=== PATIENT | male | born 1945 | race Caucasian/White ===

== ENCOUNTER 2021-06-14 02:35 | Inpatient (IN) ==
[2021-06-14 03:59] LABS: Basophils # 0.1 K/mcL (0.0-0.2); Basophils % 0.5 %; Eosinophils # 0.4 K/mcL (0.0-0.6); Eosinophils % 2.9 %; Hematocrit 38.4 % (37.5-50.1); Hemoglobin 12.3 g/dL (12.9-16.9); Immature Granulocytes % 0.3 % (0-4); Lymphocytes # 1.3 K/mcL (0.6-4.6); Lymphocytes % 9.8 %; Mean Corpuscular Hemoglobin 30.2 pg (28.0-33.3); Mean Corpuscular Volume 94.3 fL (83.0-100.0); Monocytes # 0.6 K/mcL (0.0-1.3); Monocytes % 4.6 %; Neutrophils # 10.6 K/mcL (1.6-8.9); Platelet Count 258 K/mcL (140-400); Red Blood Count 4.07 M/mcL (4.19-5.50); Red Cell Distribution Width 15.5 % (11.5-14.5); Segmented Neutrophils % 81.9 %; White Blood Count 12.9 K/mcL (4.3-11.1)
[2021-06-14 04:07] LABS: BUN/Creatinine Ratio 22 (6-26); Blood Urea Nitrogen 18 mg/dL (8-23); Calcium 8.3 mg/dL (8.6-10.3); Carbon Dioxide 28 mEq/L (23-29); Chloride 111 mEq/L (98-107); Glucose 82 mg/dL (70-105); Osmolality,Calculated 291 (280-300); Potassium 3.6 mEq/L (3.5-5.1); Sodium 140 mEq/L (136-145); Troponin I < 0.03 ng/mL (< 0.04); eGFR For African Americans > 60 (> 60); eGFR For Non-African Americans > 60 (> 60)
[2021-06-14] MEDS ORDERED: cefTRIAXone 2,000 MG in 0.9 % Sodium Chloride 20 ML IVP ONE (04:35)
[2021-06-14] MEDS ORDERED: Azithromycin 500 MG in 0.9 % Sodium Chloride 250 ML IVPB ONE (04:35)
[2021-06-14 04:52] LABS: Influenza A PCR Negative (Negative); Influenza B PCR Negative (Negative); Resp. Syncytial Virus PCR Negative (Negative)
[2021-06-14 04:58] LABS: SARS-CoV-2 by PCR (In House) Negative (Negative)
[2021-06-14] MEDS ORDERED: 0.9 % Sodium Chloride 1,000 ML IV ONE (05:46)
[2021-06-14] MEDS ORDERED: Naloxone 0.4 MG/ML INJ IVP PRN (06:04)
[2021-06-14] MEDS ORDERED: Melatonin 3 MG TABLET PO PRN (06:04)
[2021-06-14] MEDS ORDERED: Sennosides/Docusate Sodium TABLET PO PRN (06:28)
[2021-06-14] MEDS ORDERED: Carbidopa/Levodopa ER 50/200 TABLET PO SCH (09:00)
[2021-06-14 09:52] LABS: VBG HCO3 22 mEq/L (21-27); VBG PCO2 30 mmHg (41-51); VBG PH 7.47 pH Units (7.32-7.42); VBG PO2 172 mmHg (25-50)
[2021-06-14] MEDS: Gabapentin 300 MG CAPSULE PO SCH ×3 (11:07→20:56)
[2021-06-14] MEDS: ARIPiprazole 2 MG TABLET PO SCH (11:07)
[2021-06-14] MEDS: Artificial Tears SOLN 15 ML BOTTLE BOTH EYES SCH ×2 (11:07→20:57)
[2021-06-14] MEDS: Latanoprost 2.5 ML BOTTLE BOTH EYES SCH (20:57)
[2021-06-15] MEDS: cefTRIAXone 1,000 MG in 0.9 % Sodium Chloride 10 ML IVP SCH ×2 (03:35→09:08)
[2021-06-15] MEDS: Azithromycin 500 MG in 0.9 % Sodium Chloride 250 ML IVPB SCH (05:11)
[2021-06-15 06:06] LABS: Basophils # 0.1 K/mcL (0.0-0.2); Basophils % 0.6 %; Eosinophils # 0.3 K/mcL (0.0-0.6); Eosinophils % 2.2 %; Hematocrit 36.4 % (37.5-50.1); Hemoglobin 11.5 g/dL (12.9-16.9); Immature Granulocytes % 0.4 % (0-4); Lymphocytes # 1.3 K/mcL (0.6-4.6); Lymphocytes % 10.5 %; Mean Corpuscular HGB Conc 31.6 g/dL (31.6-35.5); Mean Corpuscular Hemoglobin 29.8 pg (28.0-33.3); Mean Corpuscular Volume 94.3 fL (83.0-100.0); Mean Platelet Volume 11.3 fL (9.4-12.4); Monocytes # 0.8 K/mcL (0.0-1.3); Monocytes % 6.7 %; Neutrophils # 9.9 K/mcL (1.6-8.9); Platelet Count 216 K/mcL (140-400); Red Blood Count 3.86 M/mcL (4.19-5.50); Red Cell Distribution Width 15.5 % (11.5-14.5); Segmented Neutrophils % 79.6 %; White Blood Count 12.5 K/mcL (4.3-11.1)
[2021-06-15 06:24] LABS: BUN/Creatinine Ratio 18 (6-26); Blood Urea Nitrogen 15 mg/dL (8-23); Calcium 7.8 mg/dL (8.6-10.3); Carbon Dioxide 25 mEq/L (23-29); Chloride 112 mEq/L (98-107); Glucose 75 mg/dL (70-105); Osmolality,Calculated 294 (280-300); Potassium 3.9 mEq/L (3.5-5.1); Sodium 142 mEq/L (136-145); eGFR For African Americans > 60 (> 60); eGFR For Non-African Americans > 60 (> 60)
[2021-06-15] MEDS ORDERED: Mag Hydrox/Al Hydrox/Simeth 30 ML UDC PO PRN (07:32)
[2021-06-15] MEDS ORDERED: MOM Conc 10 ML UD.LIQ PO PRN (08:04)
[2021-06-15] MEDS ORDERED: ARIPiprazole 2 MG TABLET PO SCH (09:00)
[2021-06-15] MEDS ORDERED: PEG BOTH EYES SCH (09:00)
[2021-06-15] MEDS ORDERED: PROPYLENE GLYCOL BOTH EYES SCH (09:00)
[2021-06-15] MEDS ORDERED: [UNRECOGNIZED DRUG - OTHER] BOTH EYES SCH (09:00)
[2021-06-15] MEDS: ARIPiprazole 2 MG TABLET PO SCH (09:09)
[2021-06-15] MEDS: Gabapentin 400 MG CAPSULE PO SCH ×3 (09:10→21:25)
[2021-06-15] MEDS: amLODIPine 5 MG TABLET PO SCH (09:10)
[2021-06-15] MEDS: Sennosides/Docusate Sodium TABLET PO SCH ×2 (09:10→21:26)
[2021-06-15] MEDS: Fluticasone Propionate Nasal 50 MCG/SPRAY BOTTLE NS SCH (09:33)
[2021-06-15] MEDS: Artificial Tears SOLN 15 ML BOTTLE BOTH EYES SCH ×2 (09:33→21:26)
[2021-06-15] MEDS: Carbidopa/Levodopa 25/100 TABLET PO SCH ×4 (11:47→21:25)
[2021-06-15] MEDS ORDERED: Acetaminophen 325 MG TABLET PO PRN (12:03)
[2021-06-15] MEDS ORDERED: Latanoprost 2.5 ML BOTTLE BOTH EYES SCH (21:00)
[2021-06-15] MEDS ORDERED: MELATONIN 3 MG PO SCH (21:00)
[2021-06-15] MEDS: Latanoprost 2.5 ML BOTTLE BOTH EYES SCH (21:27)
[2021-06-16] MEDS: Carbidopa/Levodopa 25/100 TABLET PO SCH ×5 (00:19→20:08)
[2021-06-16 05:01] LABS: Basophils # 0.1 K/mcL (0.0-0.2); Basophils % 0.6 %; Eosinophils # 0.4 K/mcL (0.0-0.6); Eosinophils % 3.6 %; Hematocrit 34.9 % (37.5-50.1); Hemoglobin 11.2 g/dL (12.9-16.9); Immature Granulocytes % 0.3 % (0-4); Lymphocytes % 19.7 %; Mean Corpuscular HGB Conc 32.1 g/dL (31.6-35.5); Mean Corpuscular Volume 93.6 fL (83.0-100.0); Mean Platelet Volume 11.2 fL (9.4-12.4); Monocytes # 0.9 K/mcL (0.0-1.3); Neutrophils # 6.7 K/mcL (1.6-8.9); Platelet Count 247 K/mcL (140-400); Red Blood Count 3.73 M/mcL (4.19-5.50); Red Cell Distribution Width 15.2 % (11.5-14.5); Segmented Neutrophils % 66.8 %
[2021-06-16] MEDS: Azithromycin 500 MG in 0.9 % Sodium Chloride 250 ML IVPB SCH (05:10)
[2021-06-16 05:30] LABS: BUN/Creatinine Ratio 18 (6-26); Blood Urea Nitrogen 16 mg/dL (8-23); Calcium 8.3 mg/dL (8.6-10.3); Carbon Dioxide 23 mEq/L (23-29); Chloride 110 mEq/L (98-107); Glucose 89 mg/dL (70-105); Osmolality,Calculated 295 (280-300); Potassium 3.6 mEq/L (3.5-5.1); Sodium 142 mEq/L (136-145); eGFR For African Americans > 60 (> 60); eGFR For Non-African Americans > 60 (> 60)
[2021-06-16] MEDS ORDERED: polyethylene glycoL 3350 17 GM POWD.PACK PO SCH (07:32)
[2021-06-16] MEDS ORDERED: Ergocalciferol (VIT D2) 50,000 UNIT (1.25MG) CAP PO SCH (08:01)
[2021-06-16] MEDS: amLODIPine 5 MG TABLET PO SCH (08:39)
[2021-06-16] MEDS: cefTRIAXone 1,000 MG in 0.9 % Sodium Chloride 10 ML IVP SCH (08:40)
[2021-06-16] MEDS: Sennosides/Docusate Sodium TABLET PO SCH ×2 (08:40→20:09)
[2021-06-16] MEDS: ARIPiprazole 2 MG TABLET PO SCH (08:40)
[2021-06-16] MEDS: Gabapentin 400 MG CAPSULE PO SCH ×3 (08:40→20:08)
[2021-06-16] MEDS: Fluticasone Propionate Nasal 50 MCG/SPRAY BOTTLE NS SCH (08:41)
[2021-06-16] MEDS: Artificial Tears SOLN 15 ML BOTTLE BOTH EYES SCH ×2 (08:44→20:09)
[2021-06-16] MEDS: Latanoprost 2.5 ML BOTTLE BOTH EYES SCH (20:28)
[2021-06-17] MEDS: Carbidopa/Levodopa 25/100 TABLET PO SCH ×3 (02:29→11:57)
[2021-06-17 05:19] LABS: Basophils # 0.1 K/mcL (0.0-0.2); Basophils % 0.9 %; Eosinophils # 0.5 K/mcL (0.0-0.6); Hematocrit 34.9 % (37.5-50.1); Hemoglobin 11.1 g/dL (12.9-16.9); Immature Granulocytes % 0.2 % (0-4); Lymphocytes # 1.5 K/mcL (0.6-4.6); Lymphocytes % 17.1 %; Mean Corpuscular HGB Conc 31.8 g/dL (31.6-35.5); Mean Corpuscular Hemoglobin 29.3 pg (28.0-33.3); Mean Corpuscular Volume 92.1 fL (83.0-100.0); Mean Platelet Volume 11.2 fL (9.4-12.4); Monocytes # 0.7 K/mcL (0.0-1.3); Neutrophils # 6.1 K/mcL (1.6-8.9); Platelet Count 271 K/mcL (140-400); Red Blood Count 3.79 M/mcL (4.19-5.50); Red Cell Distribution Width 14.9 % (11.5-14.5); Segmented Neutrophils % 67.8 %
[2021-06-17 05:34] LABS: BUN/Creatinine Ratio 17 (6-26); Blood Urea Nitrogen 12 mg/dL (8-23); Calcium 8.1 mg/dL (8.6-10.3); Carbon Dioxide 25 mEq/L (23-29); Chloride 112 mEq/L (98-107); Glucose 108 mg/dL (70-105); Osmolality,Calculated 294 (280-300); Potassium 3.8 mEq/L (3.5-5.1); Sodium 142 mEq/L (136-145); eGFR For African Americans > 60 (> 60); eGFR For Non-African Americans > 60 (> 60)
[2021-06-17] MEDS ORDERED: Sennosides 8.6 MG TABLET PO SCH (09:00)
[2021-06-17] MEDS ORDERED: Docusate Oral Soln 100 MG/10 ML UDC PO SCH (09:00)
[2021-06-17] MEDS ORDERED: Azithromycin 250 MG TABLET PO SCH (09:00)
[2021-06-17] MEDS: ARIPiprazole 2 MG TABLET PO SCH (09:34)
[2021-06-17] MEDS: Gabapentin 400 MG CAPSULE PO SCH (09:35)
[2021-06-17] MEDS: Fluticasone Propionate Nasal 50 MCG/SPRAY BOTTLE NS SCH ×2 (09:35→09:57)
[2021-06-17] MEDS: amLODIPine 5 MG TABLET PO SCH (09:35)
[2021-06-17] MEDS: Artificial Tears SOLN 15 ML BOTTLE BOTH EYES SCH ×2 (09:36→09:57)
[2021-06-17] MEDS: cefTRIAXone 1,000 MG in 0.9 % Sodium Chloride 10 ML IVP SCH (09:55)
[2021-06-17 11:48] LABS: Adenovirus Not Detected (Not Detect); Bordetella Pertussis Not Detected (Not Detect); Chlamydophila pneumoniae Not Detected (Not Detect); Coronavirus 229E Not Detected (Not Detect); Coronavirus HKU1 Not Detected (Not Detect); Coronavirus NL63 Not Detected (Not Detect); Coronavirus OC43 Not Detected (Not Detect); Human Metapneumovirus Not Detected (Not Detect); Human Rhinovirus/Enterovirus Not Detected (Not Detect); Influenza A Subtype 2009 H1 Not Detected (Not Detect); Influenza B Not Detected (Not Detect); Mycoplasma pneumoniae Not Detected (Not Detect); Parainfluenza Virus 1 Not Detected (Not Detect); Parainfluenza Virus 2 Not Detected (Not Detect); Parainfluenza Virus 3 Not Detected (Not Detect); Parainfluenza Virus 4 Not Detected (Not Detect); Respiratory Syncytial Virus Not Detected (Not Detect); SARS-CoV-2 Not Detected (Not Detect)
[2021-06-17 12:09] VITALS: BP 126/56; PULSE 65; TEMP 98; O2SAT 95
== END 2021-06-17 15:38 | disposition home or self-care (01) | DRG 193 ==
LOC: EMEROOARM 02:35 → 3ANU 02:35
PROVIDERS: ADMIT Internal Medicine; ATTEND Internal Medicine